=== PATIENT | male | born 1950 | race African-American/Black ===

== ENCOUNTER → 2019-03-17 | Outpatient (CLI) | payer MEDICARE, OTHER ==
[~2019-03-17] MED LIST: HCTZ25T PO; RANI150C11 PO
[2019-03-17 13:20] LABS: Albumin 3.2 g/dL (3.4-5.0); Calcium 8.9 mg/dL (8.5-10.1); Potassium 4.2 mmol/L (3.5-5.1)
[2019-03-17 13:23] LABS: BUN/Creatinine Ratio 17.9; Bilirubin, Total 0.7 mg/dL (0.2-1.0); Total Protein 7.8 g/dL (6.4-8.2)
== END | disposition home or self-care (01) ==
LOC: LAB 11:57
PROVIDERS: ATTEND Internal Medicine
DX: N17.9 Acute kidney failure, unspecified (principal); I10 Essential (primary) hypertension
CPT/HCPCS: 36415; 80053

== ENCOUNTER → 2019-03-30 | Outpatient (CLI) | payer MEDICARE, OTHER | END | disposition home or self-care (01) | LOC: Rad HDHVI 08:54 | PROVIDERS: ATTEND Internal Medicine Cardiovascular Disease | DX: I08.3 Combined rheumatic disorders of mitral, aortic and tricuspid valves (principal); I25.5 Ischemic cardiomyopathy; I13.0 Hypertensive heart and chronic kidney disease with heart failure and stage 1 through stage 4 chronic kidney disease, or unspecified chronic kidney disease; E11.22 Type 2 diabetes mellitus with diabetic chronic kidney disease; I50.23 Acute on chronic systolic (congestive) heart failure; I50.9 Heart failure, unspecified; I27.20 Pulmonary hypertension, unspecified | CPT/HCPCS: 93306 ==

== ENCOUNTER → 2020-04-04 | Outpatient (CLI) | payer MEDICARE, OTHER ==
[2020-04-04 11:53] LABS: Basophils # (auto) 0.1 10 ^3/uL (0-0.2); Eosinophils # (auto) 0.1 10 ^3/uL (0-0.8); Hematocrit 24.4 % (41.0-53.0); Hemoglobin 7.5 g/dL (13.5-17.5); Lymphocytes # (auto) 0.5 10 ^3/uL (0.4-5.4); Monocytes # (auto) 0.4 10 ^3/uL (0-1.3); Neutrophils # (auto) 3.1 10 ^3/uL (1.6-8.6); Red Blood Cells 2.68 10^6/uL (4.5-5.90); White Blood Cell 4.2 10^3/uL (4.4-10.8)
[2020-04-04 11:55] LABS: Basophils % (auto) 2.2 % (0.0-2.0); Eosinophils % (auto) 3.3 % (0.0-7.0); Lymphocytes % (auto) 12.1 % (10.0-50.0); Mean Corpuscular Hgb Conc. 30.7 g/dL (32.0-36.0); Mean Corpuscular Volume 91.1 fL (80.0-100.0); Monocytes % (auto) 8.7 % (0.0-12.0); Neutrophils % (auto) 73.7 % (37.0-80.0); Nucleated Red Blood Cells % 0.2 %; Platelet Count (auto) 209 10^3/uL (140-450); Red Cell Distribution Width 19.9 % (11.8-14.3); Urine Bacteria FEW /hpf (None Seen); Urine Blood Negative /uL (Negative); Urine Hyaline Cast FEW /lpf (0 - 2); Urine Specific Gravity 1.014 (1.001-1.035); Urine WBC 1 /hpf (0 - 3)
[2020-04-04 12:09] LABS: INR 1.22 (0.9-1.15)
[2020-04-04 12:34] LABS: Potassium 5.4 mmol/L (3.5-5.1)
[2020-04-04 12:51] LABS: BUN/Creatinine Ratio 36.7; Calcium 8.6 mg/dL (8.5-10.1)
== END | disposition home or self-care (01) ==
LOC: LAB 11:18
PROVIDERS: ATTEND Specialist
DX: D64.9 Anemia, unspecified (principal); I10 Essential (primary) hypertension; R31.9 Hematuria, unspecified; R79.0 Abnormal level of blood mineral
CPT/HCPCS: 36415; 80048; 81001; 85025; 85610; 85730; 87086

== ENCOUNTER 2021-05-12 17:18 | Inpatient (IN) | payer MEDICARE, OTHER ==
[~2021-05-12] VITALS: Ht 177.8 cm; Wt 57.0 kg
[~2021-05-12 17:18] MED LIST changes: -HCTZ25T PO; +HYDR25TA5 PO
[2021-05-12 20:01] LABS: Basophils # (auto) 0.1 10 ^3/uL (0-0.2); Basophils % (auto) 2.2 % (0.0-2.0); Eosinophils # (auto) 0.1 10 ^3/uL (0-0.8); Hematocrit 33.4 % (41.0-53.0); Hemoglobin 10.6 g/dL (13.5-17.5); Lymphocytes # (auto) 0.4 10 ^3/uL (0.4-5.4); Lymphocytes % (auto) 10.5 % (10.0-50.0); Mean Corpuscular Hemoglobin 30.3 pg (28.0-32.0); Mean Corpuscular Hgb Conc. 31.8 g/dL (32.0-36.0); Mean Corpuscular Volume 95.1 fL (80.0-100.0); Monocytes # (auto) 0.2 10 ^3/uL (0-1.3); Monocytes % (auto) 4.7 % (0.0-12.0); Neutrophils # (auto) 3.3 10 ^3/uL (1.6-8.6); Neutrophils % (auto) 79.6 % (37.0-80.0); Nucleated Red Blood Cells % 0.8 %; Red Blood Cells 3.51 10^6/uL (4.5-5.90); White Blood Cell 4.1 10^3/uL (4.4-10.8)
[2021-05-12 20:13] LABS: INR 1.52 (0.9-1.15); Partial Thromboplastin Time 35.6 sec (23.0-31.2)
[2021-05-12 20:16] LABS: Anion Gap 12 (5-15); Blood Urea Nitrogen 51 mg/dL (7-18); Calcium 8.7 mg/dL (8.5-10.1); Carbon Dioxide 14 mmol/L (21-32); Chloride 110 mmol/L (98-107); Glucose 83 mg/dL (74-106); Potassium 4.5 mmol/L (3.5-5.1); Sodium 136 mmol/L (136-145)
[2021-05-12 20:18] LABS: Alanine Aminotransferase 9 U/L (16-61); Aspartate Aminotransferase 13 U/L (15-37); BUN/Creatinine Ratio 19.3; GFR African American 31 mL/min; GFR Non-African American 26 mL/min
[2021-05-12 20:21] LABS: Alkaline Phosphatase 87 U/L (45-117); Bilirubin, Total 1.4 mg/dL (0.2-1.0); Total Protein 8.1 g/dL (6.4-8.2)
[2021-05-13] MEDS ORDERED: SODIUM BICARBONATE 8.4 % INJ 50ML VIAL IV ONE (00:30)
[2021-05-13] MEDS ORDERED: ONDANSETRON HCL 4 MG/2 ML VIAL IV PRN (07:00)
[2021-05-13] MEDS ORDERED: ACETAMINOPHEN 325 MG TAB PO PRN (07:00)
[2021-05-13] MEDS ORDERED: MORPHINE SULF INJ 2 MG/ML SYRINGE 1ML IV PRN (07:00)
[2021-05-13] MEDS ORDERED: DOCUSATE SOD 100 MG CAP PO PRN (07:00)
[2021-05-13] MEDS ORDERED: NITROGLYCERIN 0.4 MG SL TAB SL PRN (07:00)
[2021-05-13] MEDS ORDERED: HYDROcodone-ACET 5/325MG TAB PO PRN (07:00)
[2021-05-13 08:09] LABS: Basophils # (auto) 0.1 10 ^3/uL (0-0.2); Basophils % (auto) 1.9 % (0.0-2.0); Eosinophils # (auto) 0.1 10 ^3/uL (0-0.8); Eosinophils % (auto) 1.6 % (0.0-7.0); Hematocrit 36.7 % (41.0-53.0); Hemoglobin 11.6 g/dL (13.5-17.5); Lymphocytes # (auto) 0.4 10 ^3/uL (0.4-5.4); Lymphocytes % (auto) 9.3 % (10.0-50.0); Mean Corpuscular Hgb Conc. 31.6 g/dL (32.0-36.0); Mean Corpuscular Volume 94.8 fL (80.0-100.0); Monocytes # (auto) 0.4 10 ^3/uL (0-1.3); Monocytes % (auto) 10.1 % (0.0-12.0); Neutrophils # (auto) 3.3 10 ^3/uL (1.6-8.6); Neutrophils % (auto) 77.1 % (37.0-80.0); Nucleated Red Blood Cells % 0.3 %; Red Blood Cells 3.87 10^6/uL (4.5-5.90); Red Cell Distribution Width 19.2 % (11.8-14.3); White Blood Cell 4.3 10^3/uL (4.4-10.8)
[2021-05-13 08:24] LABS: INR 1.51 (0.9-1.15); Partial Thromboplastin Time 32.1 sec (23.0-31.2)
[2021-05-13 08:28] LABS: Albumin 2.4 g/dL (3.4-5.0); Calcium 8.6 mg/dL (8.5-10.1); Potassium 4.7 mmol/L (3.5-5.1)
[2021-05-13 08:31] LABS: BUN/Creatinine Ratio 21.5; Bilirubin, Total 1.4 mg/dL (0.2-1.0); Total Protein 7.4 g/dL (6.4-8.2)
[2021-05-13] MEDS ORDERED: HEPARIN SODIUM (PORCINE) 5000 UNITS/ML 1ML VIAL SC SCH (10:00)
[2021-05-13] MEDS ORDERED: ASCORBIC ACID 500 MG TAB PO SCH (10:00)
[2021-05-13] MEDS ORDERED: ZINC SULFATE 220mg CAP or TAB PO SCH (10:00)
[2021-05-13] MEDS: FAMOTIDINE (10MG/ML) 2ML VL IV SCH (12:05)
[2021-05-13] MEDS: MULTIPLE VITAMIN TAB PO SCH (12:05)
[2021-05-13 13:34] LABS: Uric Acid 13.5 mg/dL (3.5-7.2)
[2021-05-13] MEDS: FUROSEMIDE 40 MG/4 ML VIAL IV SCH (13:35)
[2021-05-13] MEDS: SODIUM CHLOR 0.9% PF (SALINE LOCK) 10ML VIAL/SYR IV SCH ×2 (14:11→21:13)
[2021-05-13 16:48] VITALS: BP 115/63
[2021-05-13] MEDS: CARVEDILOL 3.125 MG TAB PO SCH (21:13)
[2021-05-13 22:00] VITALS: BP 125/63
[2021-05-13 22:46] LABS: Protein, Urine 11.5 mg/dL (0.0-11.9)
[2021-05-13 22:47] LABS: Amphetamine Screen, Urine NEGATIVE (NEGATIVE); Barbiturate Scree,Urine NEGATIVE (NEGATIVE); Benzodiazephine Screen, Urine NEGATIVE (NEGATIVE); Cannabinoid Screen, Urine NEGATIVE (NEGATIVE); Cocaine Screen, Urine NEGATIVE (NEGATIVE); Opiate Scree,Urine NEGATIVE (NEGATIVE); Phencyclidine Screen, Urine NEGATIVE (NEGATIVE)
[2021-05-13 22:48] LABS: Urine Bacteria NONE SEEN /hpf (None Seen); Urine Blood Negative /uL (Negative); Urine Hyaline Cast MOD /lpf (0 - 2); Urine Specific Gravity 1.009 (1.001-1.035); Urine WBC 1 /hpf (0 - 3)
[2021-05-14 05:00] VITALS: BP 108/57
[2021-05-14] MEDS: SODIUM CHLOR 0.9% PF (SALINE LOCK) 10ML VIAL/SYR IV SCH ×3 (05:07→22:14)
[2021-05-14 06:34] LABS: Basophils # (auto) 0.1 10 ^3/uL (0-0.2); Basophils % (auto) 1.7 % (0.0-2.0); Eosinophils # (auto) 0.1 10 ^3/uL (0-0.8); Eosinophils % (auto) 1.9 % (0.0-7.0); Hematocrit 32.7 % (41.0-53.0); Hemoglobin 10.5 g/dL (13.5-17.5); Lymphocytes # (auto) 0.3 10 ^3/uL (0.4-5.4); Lymphocytes % (auto) 6.4 % (10.0-50.0); Mean Corpuscular Hemoglobin 30.2 pg (28.0-32.0); Mean Corpuscular Hgb Conc. 32.1 g/dL (32.0-36.0); Monocytes # (auto) 0.4 10 ^3/uL (0-1.3); Monocytes % (auto) 7.4 % (0.0-12.0); Neutrophils # (auto) 4.2 10 ^3/uL (1.6-8.6); Neutrophils % (auto) 82.6 % (37.0-80.0); Nucleated Red Blood Cells % 0.1 %; Red Blood Cells 3.48 10^6/uL (4.5-5.90); Red Cell Distribution Width 19.1 % (11.8-14.3); White Blood Cell 5.1 10^3/uL (4.4-10.8)
[2021-05-14 06:52] LABS: Albumin 2.5 g/dL (3.4-5.0); Calcium 8.5 mg/dL (8.5-10.1); Potassium 4.9 mmol/L (3.5-5.1)
[2021-05-14 06:56] LABS: % Iron Saturation 9.7 % (20-55); BUN/Creatinine Ratio 23.1; Phosphorus 3.6 mg/dL (2.5-4.90); Total Protein 7.2 g/dL (6.4-8.2); Uric Acid 13.5 mg/dL (3.5-7.2)
[2021-05-14 09:00] VITALS: BP 113/60
[2021-05-14] MEDS: THIAMINE HCL 100 MG TAB PO SCH (09:38)
[2021-05-14] MEDS: FUROSEMIDE 40 MG/4 ML VIAL IV SCH (09:38)
[2021-05-14] MEDS: FAMOTIDINE (10MG/ML) 2ML VL IV SCH (09:38)
[2021-05-14] MEDS: CARVEDILOL 3.125 MG TAB PO SCH ×2 (09:39→22:14)
[2021-05-14] MEDS: MULTIPLE VITAMIN TAB PO SCH (09:39)
[2021-05-14] MEDS ORDERED: NICOTINE 14 MG/24HR TOPICAL PATCH TD SCH (10:00)
[2021-05-14] MEDS: LACTULOSE 20Gm/30ML SOLN PO SCH (10:08)
[2021-05-14] MEDS ORDERED: METO25TA5 PO (10:16)
[2021-05-14] MEDS ORDERED: FURO20TA3 PO (10:16)
[2021-05-14] MEDS ORDERED: PANT1INJ3 PO (10:16)
[2021-05-14] MEDS ORDERED: PANT40T PO (10:17)
[2021-05-14 13:00] VITALS: BP 97/59
[2021-05-14 17:00] VITALS: BP 107/54
[2021-05-14 22:30] VITALS: BP 117/64
[2021-05-15] MEDS: SODIUM CHLOR 0.9% PF (SALINE LOCK) 10ML VIAL/SYR IV SCH ×3 (05:24→22:10)
[2021-05-15 05:56] VITALS: BP 102/63
[2021-05-15 09:00] VITALS: BP 115/73
[2021-05-15 13:00] VITALS: BP 106/61
[2021-05-15] MEDS: LACTULOSE 20Gm/30ML SOLN PO SCH (16:23)
[2021-05-15] MEDS: THIAMINE HCL 100 MG TAB PO SCH (16:23)
[2021-05-15] MEDS: FAMOTIDINE (10MG/ML) 2ML VL IV SCH (16:23)
[2021-05-15] MEDS: CARVEDILOL 3.125 MG TAB PO SCH ×2 (16:24→22:00)
[2021-05-15] MEDS: MULTIPLE VITAMIN TAB PO SCH (16:24)
[2021-05-15 17:00] VITALS: BP 90/44
[2021-05-15 23:07] VITALS: BP 100/55
[2021-05-16] MEDS: SODIUM CHLOR 0.9% PF (SALINE LOCK) 10ML VIAL/SYR IV SCH ×2 (05:16→14:51)
[2021-05-16 05:32] VITALS: BP 104/58
[2021-05-16 06:21] LABS: Potassium 4.9 mmol/L (3.5-5.1)
[2021-05-16 06:26] LABS: BUN/Creatinine Ratio 26.7; Calcium 8.1 mg/dL (8.5-10.1); Magnesium 2.2 mg/dL (1.6-2.6)
[2021-05-16 09:00] VITALS: BP 106/50
[2021-05-16] MEDS ORDERED: FUROSEMIDE 20 MG TAB PO SCH (10:00)
[2021-05-16] MEDS: MULTIPLE VITAMIN TAB PO SCH (10:09)
[2021-05-16] MEDS: CARVEDILOL 3.125 MG TAB PO SCH (10:12)
[2021-05-16] MEDS: FAMOTIDINE (10MG/ML) 2ML VL IV SCH (10:13)
[2021-05-16] MEDS: THIAMINE HCL 100 MG TAB PO SCH (10:13)
[2021-05-16] MEDS: LACTULOSE 20Gm/30ML SOLN PO SCH (10:13)
[2021-05-16 13:00] VITALS: BP 98/48
[2021-05-16 16:10] VITALS: BP 107/66
[2021-05-16 17:00] VITALS: BP 107/66
== END 2021-05-16 16:59 | disposition home health service (06) | DRG 432 ==
LOC: ER 17:18 → TELE 05-13 06:54 → TELE-WESTW 05-13 11:29
PROVIDERS: ADMIT Nurse Practitioner Family; ATTEND Internal Medicine
PROC: 0W9G3ZZ Drainage of Peritoneal Cavity, Percutaneous Approach (ICD-10-PCS; principal; 2021-05-15)
DX: K70.31 Alcoholic cirrhosis of liver with ascites (principal); I50.23 Acute on chronic systolic (congestive) heart failure; N17.0 Acute kidney failure with tubular necrosis; I13.0 Hypertensive heart and chronic kidney disease with heart failure and stage 1 through stage 4 chronic kidney disease, or unspecified chronic kidney disease; E87.2 Acidosis; D68.4 Acquired coagulation factor deficiency; N18.32 Chronic kidney disease, stage 3b; I25.10 Atherosclerotic heart disease of native coronary artery without angina pectoris; F17.210 Nicotine dependence, cigarettes, uncomplicated; H91.90 Unspecified hearing loss, unspecified ear; D63.8 Anemia in other chronic diseases classified elsewhere; N50.89 Other specified disorders of the male genital organs; Z20.822 Contact with and (suspected) exposure to COVID-19
CPT/HCPCS: 36415; 36600; 71045; 74176; 76700; 76775; 76942; 80048; 80053; 80307; 81001; 82140; 82570; 82805; 83036; 83540; 83550; 83735; 84100; 84156; 84300; 84443; 84550; 85025; 85610; 85730; 87426; 93005; 96374; 96375; 97163; G0378; J3490